=== PATIENT | female | born 1940 | race Caucasian/White ===

== ENCOUNTER → 2024-06-20 | Outpatient (CLI) | payer MEDICARE, MEDICAID, SELFPAY ==
--- NOTE | 2024-06-20 10:00 | XR_ITS ---
Examination: Breast ultrasound complete, bilateral Date and time of exam: June 20, 2024 1010 hours INDICATIONS: Patient states palpable lump in the breast note is beginning one month ago Technique: Real-time grayscale ultrasonographic imaging bilateral breasts, including all 4 quadrants as well as nipple retroareolar and axillary regions. Findings: Sonographic images right breast No cystic or solid mass Sonographic images left breast 10:00 suspicious mass 2.3 x 1.4 x 2.4 cm with indistinct margins and vascularity IMPRESSION: BI-RADS Category 4: Suspicious for malignancy Suspicious mass 10:00 position left breast, biopsy is needed to exclude breast carcinoma This mass is amenable to ultrasound-guided breast biopsy for diagnosis Recommend follow-up diagnostic mammography
--- NOTE | 2024-06-20 11:15 | XR_ITS ---
Examination: Screening digital mammography, bilateral Computer aided detection 3-D breast Tomosynthesis, bilateral Date and time of exam: June 20, 2024 1036 hours INDICATIONS: Patient states lump right breast note is 6 months ago Indication: Screening Technique: Nonmagnified MLO, CC views of the breasts to been obtained, reconstructed from 3-D Tomosynthesis images. R2 computer aided detection program utilized for evaluation of suspicious masses and/or abnormal calcifications. 3-D Tomosynthesis images obtained. Findings: Scattered areas of fibroglandular density 22 mm mass inner slightly upper left breast indistinct margins Impression: BI-RADS Category 4: Suspicious for malignancy Suspicious mass inner slightly upper left breast indistinct margins corresponding to 10:00 suspicious mass on left breast sonogram today Biopsy of this mass is needed to exclude breast carcinoma This mass is amenable to ultrasound-guided breast biopsy for diagnosis
== END | disposition home or self-care (01) ==
PROVIDERS: PCP Hospitalist; Referring Provider Hospitalist; Visit Provider Hospitalist
DX: Z12.31 Encounter for screening mammogram for malignant neoplasm of breast (principal); R92.343 Mammographic extreme density, bilateral breasts; N63.22 Unspecified lump in the left breast, upper inner quadrant
CPT/HCPCS: 76641; 77063; 77067

== ENCOUNTER 2024-07-15 13:24 | Emergency (ER) | payer MEDICARE, MEDICAID, SELFPAY ==
[2024-07-15 13:47] VITALS: BP 155/94; PULSE 107; RESP 18; TEMP 36.9; O2SAT 95
--- NOTE | 2024-07-15 14:00 | XR_ITS ---
Examination: Abdomen AP single view Technique: AP portable supine abdomen, single view Exam date and time: July 15, 2024 1404 hrs. Indications: Unknown position gastrostomy tube Findings: Gastrostomy tube tip upper left abdomen in distribution of the stomach on the precontrast images Contrast opacified tube shows the tube tip in the stomach with no abnormal extravasation of contrast Moderate colonic ileus No free air Impression: Gastrostomy tube satisfactory position in the stomach
--- NOTE | 2024-07-15 14:01 | EDNOTE_ITS ---
<Statement entered by Genoveva Sanchez MD - 07/15/24 23:19> As co-signing physician, I was present and available for consult prn. I concur with the plan and care as documented by the midlevel provider. ED General RME/HPI General Chief complaint: Abdominal Pain Stated complaint: PEG TUBE PULLED OUT Time Seen by Provider: 07/15/24 13:31 Arrival date/time: 07/15/24 13:24 CC: G-tube pulled out HPI patient presents the ER via EMS from assisted care facility patient is awake alert oriented states that she had the G-tube put in several months ago. Patient denies localized pain. Not sure how it came out but was assured me that it came out this morning. Patient no specific complaints. Related Data Home Medications ?Medication ?Instructions ?Recorded ?Confirmed clopidogrel 75 mg tablet (Plavix) 75 mg PO QDAY 07/01/23 05/02/24 metformin 500 mg tablet 500 mg PO BID 07/01/23 05/02/24 lisinopril 20 mg tablet 20 mg PO QDAY 04/28/24 05/02/24 hydrochlorothiazide 12.5 mg capsule 12.5 mg PO QDAY 05/02/24 05/02/24 Previous Rx's ?Medication ?Instructions ?Recorded fluconazole 200 mg tablet 200 mg PO QDAY #14 tabs 05/07/24 metoclopramide HCl 5 mg/5 mL oral 5 mg (5 mL) PO TID #473 mL 05/07/24 solution metoprolol tartrate 25 mg tablet 12.5 mg (1/2 x 25 mg) PO BID #30 05/07/24 tabs Allergies Allergy/AdvReac Type Severity Reaction Status Date / Time latex Allergy Severe POWDER IN Verified 07/15/24 15:37 GLOVES Review of Systems Review of Systems Narrative Review of Systems: GEN: No fever, no chills, no weight loss EYES: No discharge, no visual changes, no pain HEENT: No ear pain, no congestion, no sore throat PULM: No shortness of breath, no cough, no congestion CV: No chest pain, no dyspnea on exertion, no palpitations GI: No nausea, no vomiting, no diarrhea, no pain, no constipation : No frequency, no urgency, no dysuria MUSC/SKEL: No joint pain, no back pain SKIN: No rash PSYCH: No hallucinations, no depression HEME/LYMPH: No easy bleeding or bruising tendencies NEURO: No weakness, no headache Past Medical History Past Medical History NEUROLOGIC: Negative Neurological Disorders or Seizures (all information provided by son Byron) CARDIAC: Positive Cardiac Disorders, Coronary Artery Disease and Hypertension; Negative Myocardial Infarction, Cardiac Arrhythmia or Congestive Heart Failure RESPIRATORY: Negative Chronic Obstructive Pulmonary Disease (COPD) or Asthma GASTROINTESTINAL: Positive Obesity; Negative Gastrointestinal Disorders, Cirrhosis, Pancreatitis, Celiac Disease, Gall Bladder Disease, Gastrointestinal Bleed, Esophageal Varices, Cueto's Esophagus, Colitis, Ulcerative Colitis, Diverticulitis, Diverticulosis, Ulcer, Irritable Bowel, Crohn's Disease, Obstructive Bowel, Hiatal Hernia, Hemorrhoids or Gastroesophageal Reflux Disease GENITOURINARY: Negative Genitourinary Disorders or Renal Disease REPRODUCTIVE: Negative Pelvic Inflammatory Disease MUSCULOSKELETAL: Negative Musculoskeletal Disorders ENT: Positive Cataracts; Negative Glaucoma, Blind, Retinal Detachment, Macular Degeneration, Ear Infection, Deafness or Eye Prosthesis ENDOCRINE: Positive Endocrine Disorders and Diabetes Mellitus Type 2; Negative Diabetes Mellitus Type 1, Hypoglycemia, Andrew's Syndrome, Yimi's Disease, Hyperthyroidism, Hypothyroidism, Parathyroid Disease, Pituitary Disease, Systemic Lupus Erythematosus, Syndrome of Inappropriate Antidiuretic H ormone (SIADH), Adrenal Disease or Graves' Disease HEMATOLOGIC: Positive Blood Disorders; Negative Sickle Cell Disease PSYCHO/SOCIAL: Positive Bipolar Disorder; Negative Psychiatric Problems OTHER HISTORY: Positive Hospitalization, Shingles, Falls and Anesthesia Reactions (pt had confusion after anesthesia about 7yrs go); Negative Autoimmune Disease, Blood Transfusions or Blood Transfusion Reaction Family History FAMILY HISTORY: Negative Family Psychiatric Problems, Family Respiratory Disorders, Family Cardiac Disorders, Family Gastrointestinal Problems, Family Cancer, Family Surgery or Family Anesthesia Reaction Surgical History SURGICAL: Negative Cardiac Surgery, Open Heart Surgery, Coronary Artery Bypass Graft, Valve Replacement, Vascular Surgery, Coronary Stent or Cardiac Catheterization Social History SMOKING STATUS: Unknown if ever smoked SUBSTANCE USE: does not use ED Exam Narrative Physical exam: [General: Obese not in any acute distress Head normocephalic HEENT: Within acceptable limits Neck is supple nontender Chest equal chest rise nontender to palpation Respiratory: Clear to auscultation no wheezes crackles or rubs CV: Rate rhythm is regular no murmurs rubs or clicks Abdomen is distended secondary to body habitus upper central G-tube stoma clean dry intact no surrounding erythema or edema. Back: No CVA tenderness no spinous process tenderness from cervical spine thoracic and lumbar spine Skin: Intact no petechiae rash induration ulceration or crepitus Extremities: Moving all extremity against resistance cap refill less than 2 seconds neurosensory intact Neuro: Awake alert oriented x2, person and place, Glascow coma 15 no focal deficits] Course Quality Measures VTE prophylaxis Orders Category Date Time Status Change Gastrostomy Tube NOW Care 07/15/24 13:32 Completed XR abdomen 1V Stat Exams 07/15/24 14:00 Completed Vital Signs Vital signs: Vital Signs Temperature 98.4 F 07/15/24 13:47 Pulse Rate 107 H 07/15/24 13:47 Respiratory Rate 18 07/15/24 13:47 Blood Pressure 155/94 H 07/15/24 13:47 Pulse Oximetry (%) 95 07/15/24 13:47 Oxygen Delivery Method Room Air 07/15/24 13:47 Procedures -ED Procedure Comment Standard PEG tube attempt x 1, without success. #12 Kirkland catheter placed without complication. Patient tolerated the procedure well. MDM Patient data External records reviewed:: EMS form Clinical information provided by:: patient and EMS Social determinants that could affect healthcare access:: none Patient has the following chronic illnesses:: See past medical history How is presenting disease/condition affected by chronic disease/condition?: uneffected by Evaluation data The following diagnostics were reviewed and interpreted by me:: lab results and radiology exam(s) Lab and/or radiology exams considered but not ordered:: See MDM Interpretation Summary: N G-tube replacement Medications Medications considered but not ordered:: None Medication administrations:: None Consultations Consultation(s) initiated? (list below): No Diagnosis Differential Diagnosis ED Complaint MDM: G-tube failure G-tube replacement Most likely diagnosis given after review of the tests above:: G-tube replacement Admission Indicated Admission indicated?: not indicated Explain why admission is indicated or not indicated:: Stable for outpatient follow-up Admission Request Was there a request for admission?: No Disposition Plan Disposition Plan: Discharge Discharge Attestation Discharge Attestation: The patient and all family members were given an opportunity to ask questions and understood the discharge instructions. Discharge instructions specifically effects, indications for sooner follow up or return to the emergency department, and the expected course of current diagnosis. Patient condition: Stable Medical Decision Making Differential Diagnosis Differential Diagnosis: G-tube failure G-tube replacement Discharge Plan Plan Patient Disposition: HOME (Self Care) Prescriptions/Referrals Prescriptions/Med Rec: No Action metformin 500 mg Tablet 500 mg PO BID clopidogrel [Plavix] 75 mg Tablet 75 mg PO QDAY lisinopril 20 mg Tablet 20 mg PO QDAY hydrochlorothiazide 12.5 mg capsule 12.5 mg PO QDAY metoclopramide HCl 5 mg/5 mL solution 5 mg PO TID Qty: 473 0RF metoprolol tartrate 25 mg tablet 12.5 mg PO BID Qty: 30 0RF fluconazole 200 mg tablet 200 mg PO QDAY Qty: 14 0RF Referrals: Won Coto MD [Physician] - In 1 week No Primary/Family,Physician [Primary Care Provider] - In 1 week Problem List Clinical Impression: Complaint associated with gastric tube Patient/Caregiver Discharge Instructions Education Materials: Understanding PEG Tube Feeding Print Language: Bolivian Stand Alone Forms: Katie Award Info., Patient Portal Info Letter PA/BUTCHER MEAT Supervising Physician PA/BUTCHER MEAT Supervising Physician: Mak Chew ENP
--- NOTE | 2024-07-15 15:08 | PC.CC ---
Addendum entered by Mulugeta Peña II 07/15/24 15:50: 1539-Call from dispatch, transport ETA 1800. Original Note: [employer] [facility] engaged for transport for pt back to [facility]. 1413-Call to [facility] with request for gurney transport. Reference # [id number]. Pending Transport ETA. PCS and face sheet uploaded to [employer].
== END 2024-07-15 16:45 | disposition home or self-care (01) ==
PROVIDERS: Emergency Provider Emergency Medicine
DX: Z43.1 Encounter for attention to gastrostomy (principal)
CPT/HCPCS: 43762; 74018; 99283; Q9963

== ENCOUNTER 2024-08-03 14:54 | Emergency (ER) | payer MEDICARE, MEDICAID, SELFPAY ==
[2024-08-03 14:56] VITALS: BP 164/93; PULSE 97; RESP 17; TEMP 36.8; O2SAT 94; BMI 24.2
--- NOTE | 2024-08-03 15:07 | EDNOTE_ITS ---
ED General RME/HPI General Chief complaint: General Adult/Misc Complain Stated complaint: G TUBE REPLACMENT Time Seen by Provider: 08/03/24 15:02 Arrival date/time: 08/03/24 14:54 RME / HPI RME / HPI narrative: DR. BUSCH MAIN ED EVALUATION: 84 year old female with past medical history significant for coronary artery disease status post PTCA, diabetes mellitus type 2, essential hypertension, metabolic encephalopathy presents to the Emergency Department [facility] from [facility] for G-tube replacement. Patient states that she did not realize that she pulled it out. No symptoms reported at this time. Related Data Home Medications ?Medication ?Instructions ?Recorded ?Confirmed clopidogrel 75 mg tablet (Plavix) 75 mg PO QDAY 07/01/23 05/02/24 metformin 500 mg tablet 500 mg PO BID 07/01/23 05/02/24 lisinopril 20 mg tablet 20 mg PO QDAY 04/28/24 05/02/24 hydrochlorothiazide 12.5 mg capsule 12.5 mg PO QDAY 05/02/24 05/02/24 Previous Rx's ?Medication ?Instructions ?Recorded fluconazole 200 mg tablet 200 mg PO QDAY #14 tabs 05/07/24 metoclopramide HCl 5 mg/5 mL oral 5 mg (5 mL) PO TID #473 mL 05/07/24 solution metoprolol tartrate 25 mg tablet 12.5 mg (1/2 x 25 mg) PO BID #30 05/07/24 tabs Allergies Allergy/AdvReac Type Severity Reaction Status Date / Time latex Allergy Severe POWDER IN Verified 07/15/24 15:37 GLOVES Review of Systems Review of Systems Systems Reviewed: All systems reviewed, normal except as documented Narrative Review of Systems: GEN: No fever, no chills, no weight loss EYES: No discharge, no visual changes, no pain HEENT: No ear pain, no congestion, no sore throat PULM: No shortness of breath, no cough, no congestion CV: No chest pain, no dyspnea on exertion, no palpitations GI: No nausea, no vomiting, no diarrhea, no pain, no constipation : No frequency, no urgency and no dysuria MUSC/SKEL: No joint pain, no back pain SKIN: No rash PSYCH: No hallucinations, no depression HEME/LYMPH: No easy bleeding or bruising tendencies NEURO: No weakness, no headache Past Medical History Past Medical History CARDIAC: Positive Cardiac Disorders, Coronary Artery Disease and Hypertension GASTROINTESTINAL: Positive Obesity ENT: Positive Cataracts ENDOCRINE: Positive Endocrine Disorders and Diabetes Mellitus Type 2 HEMATOLOGIC: Positive Blood Disorders PSYCHO/SOCIAL: Positive Bipolar Disorder OTHER HISTORY: Positive Hospitalization, Shingles, Falls and Anesthesia Reactions Social History SMOKING STATUS: Never smoker SUBSTANCE USE: does not use ALCOHOL: Never ED Exam Narrative Physical exam: GENERAL APPEARANCE: alert and oriented x 4, well-developed, well-nourished, no acute distress VITALS: All vitals were reviewed and the pulse ox is 94% on room air, which is normal according to my interpretation. HEENT: Normocephalic, atraumatic; pupils equal, round, reactive to light; EOMI; mucous membranes pink, moist; oropharynx clear NECK: Supple LUNGS: CTABL; no wheezes, no rales, no rhonchi HEART: Regular rate, regular rhythm; normal S1, S2; no murmurs ABDOMEN: non distended; normal BS; soft, no tenderness, no guarding, no rebound; no masses, no organomegaly, no hernia BACK: no CVA tenderness EXTREMITIES: atraumatic; no edema NEUROLOGIC: awake; alert and oriented x4; cranial nerves II-XII grossly intact; no focal sensory or motor deficits PSYCHIATRIC: appropriate mood and affect SKIN: warm, dry, normal color; no rashes Course Course Course Narrative: Attempted to replace g-tube with 16Fr gtube however tube size was unable to pass. Replaced with 14Fr aaron catheter. Patient tolerated well. No complications. Quality Measures none Reevaluation(s) Reevaluation #1: Patient remains clinically stable throughout the emergency department visit. Re- assessment at the time of disposition demonstrates that the patient is in no acute distress. We reviewed all the results, analysis, and treatment plans. Patient is amenable to discharge. Strict return precautions were outlined. Patient was discharged in stable condition. Time: 15:40 Vital Signs Vital signs: Vital Signs Temperature 98.2 F 08/03/24 14:56 Pulse Rate 97 08/03/24 14:56 Respiratory Rate 17 08/03/24 14:56 Blood Pressure 164/93 H 08/03/24 14:56 Pulse Oximetry (%) 94 L 08/03/24 14:56 Oxygen Delivery Method Room Air 08/03/24 14:56 Procedures -ED Procedure Comment 14 Aaron placed for a G-tube. Patient tolerated the procedure well. No complications. MDM Patient data External records reviewed:: [facility] previous records (Reviewed last ED visit dated 07/15/24, discharged with the following: Complaint associated with gastric tube.) Clinical information provided by:: patient Social determinants that could affect healthcare access:: housing ([facility]) Patient has the following chronic illnesses:: Coronary artery disease status post PTCA, diabetes mellitus type 2, essential hypertension, metabolic encephalopathy. How is presenting disease/condition affected by chronic disease/condition?: uneffected by Evaluation data The following diagnostics were reviewed and interpreted by me:: other (specify) (none) Lab and/or radiology exams considered but not ordered:: none Interpretation Summary: n/a Medications Medications considered but not ordered:: none Medication administrations:: see above if any Consultations Consultation(s) initiated? (list below): No Diagnosis Differential Diagnosis ED Complaint MDM: G-tube complications, dislodged gastrostomy tube Most likely diagnosis given after review of the tests above:: Dislodged gastrostomy tube Admission Indicated Admission indicated?: not indicated Explain why admission is indicated or not indicated:: Patient has no emergent abnormalities on his studies and can be managed on an outpatient basis. Admission Request Was there a request for admission?: No Disposition Plan Disposition Plan: Discharge Discharge Attestation Discharge Attestation: The patient and all family members were given an opportunity to ask questions and understood the discharge instructions. Discharge instructions specifically effects, indications for sooner follow up or return to the emergency department, and the expected course of current diagnosis. Patient condition: Stable Medical Decision Making [facility] Narrative [facility] Narrative: IDinorah am scribing for and in the presence of Dr. Busch. Differential Diagnosis Differential Diagnosis: G-tube complications, dislodged gastrostomy tube Discharge Plan Plan Patient Disposition: Xfer Skilled Nsg Fac (SNF) Prescriptions/Referrals Prescriptions/Med Rec: No Action metformin 500 mg Tablet 500 mg PO BID clopidogrel [Plavix] 75 mg Tablet 75 mg PO QDAY lisinopril 20 mg Tablet 20 mg PO QDAY hydrochlorothiazide 12.5 mg capsule 12.5 mg PO QDAY metoclopramide HCl 5 mg/5 mL solution 5 mg PO TID Qty: 473 0RF metoprolol tartrate 25 mg tablet 12.5 mg PO BID Qty: 30 0RF fluconazole 200 mg tablet 200 mg PO QDAY Qty: 14 0RF Problem List Clinical Impression: Dislodged gastrostomy tube Patient/Caregiver Discharge Instructions Education Materials: ED Feeding Tube Insertion Print Language: Hungarian Stand Alone Forms: Katie Award Info., Patient Portal Info Letter
[2024-08-03 15:09] VITALS: PULSE 74; RESP 20; O2SAT 98; BMI 24.2
[2024-08-03 15:17] VITALS: PULSE 74; RESP 20; O2SAT 98
--- NOTE | 2024-08-03 16:07 | PC.CC ---
ASWMelissa was consulted regarding transportation for the patient back to [facility]. [facility].
[2024-08-03 17:55] VITALS: BP 170/97; PULSE 98; RESP 17; TEMP 36.9; O2SAT 96
== END 2024-08-03 20:01 | disposition skilled nursing facility (03) ==
PROVIDERS: Emergency Provider Emergency Medicine; PCP Hospitalist
DX: Z46.59 Encounter for fitting and adjustment of other gastrointestinal appliance and device (principal); I25.10 Atherosclerotic heart disease of native coronary artery without angina pectoris; I10 Essential (primary) hypertension; E11.9 Type 2 diabetes mellitus without complications
CPT/HCPCS: 43762; 99283

== ENCOUNTER 2024-08-03 22:14 | Emergency (ER) | payer MEDICARE, MEDICAID, SELFPAY ==
[2024-08-03 22:19] VITALS: BP 161/83; PULSE 94; RESP 18; TEMP 36.7; O2SAT 95; BMI 25.0
[2024-08-03 22:45] VITALS: PULSE 76; RESP 20; O2SAT 98
--- NOTE | 2024-08-03 22:50 | EDNOTE_ITS ---
ED General RME/HPI General Chief complaint: General Adult/Misc Complain Stated complaint: G TUBE REPLACEMENT Time Seen by Provider: 08/03/24 22:19 Arrival date/time: 08/03/24 22:14 Limitations: no limitations RME / HPI RME / HPI narrative: Dr. D[facility]'s Main ED Evaluation: 84yo female with a history of dementia presents to the ED for a chief complaint of a g-tube replacement. [facility] staff states they found the patient with a bandaid over her G-tube site without her G-tube in place, so they sent her over to get it replaced. Patient denies taking it out, but [facility] staff endorse she frequently does this. Patient denies any bleeding, abdominal pain or any other associated symptoms. Related Data Home Medications ?Medication ?Instructions ?Recorded ?Confirmed clopidogrel 75 mg tablet (Plavix) 75 mg PO QDAY 07/01/23 05/02/24 metformin 500 mg tablet 500 mg PO BID 07/01/23 05/02/24 lisinopril 20 mg tablet 20 mg PO QDAY 04/28/24 05/02/24 hydrochlorothiazide 12.5 mg capsule 12.5 mg PO QDAY 05/02/24 05/02/24 Previous Rx's ?Medication ?Instructions ?Recorded fluconazole 200 mg tablet 200 mg PO QDAY #14 tabs 05/07/24 metoclopramide HCl 5 mg/5 mL oral 5 mg (5 mL) PO TID #473 mL 05/07/24 solution metoprolol tartrate 25 mg tablet 12.5 mg (1/2 x 25 mg) PO BID #30 05/07/24 tabs Allergies Allergy/AdvReac Type Severity Reaction Status Date / Time latex Allergy Severe POWDER IN Verified 07/15/24 15:37 GLOVES Review of Systems Review of Systems Systems Reviewed: All systems reviewed, normal except as documented Past Medical History Past Medical History NEUROLOGIC: Negative Neurological Disorders or Seizures CARDIAC: Positive Cardiac Disorders, Coronary Artery Disease and Hypertension; Negative Myocardial Infarction, Cardiac Arrhythmia or Congestive Heart Failure RESPIRATORY: Negative Chronic Obstructive Pulmonary Disease (COPD) or Asthma GASTROINTESTINAL: Positive Obesity; Negative Gastrointestinal Disorders, Cirrhosis, Pancreatitis, Celiac Disease, Gall Bladder Disease, Gastrointestinal Bleed, Esophageal Varices, Cueto's Esophagus, Colitis, Ulcerative Colitis, Diverticulitis, Diverticulosis, Ulcer, Irritable Bowel, Crohn's Disease, Obstructive Bowel, Hiatal Hernia, Hemorrhoids or Gastroesophageal Reflux Disease GENITOURINARY: Negative Genitourinary Disorders or Renal Disease REPRODUCTIVE: Negative Pelvic Inflammatory Disease MUSCULOSKELETAL: Negative Musculoskeletal Disorders ENT: Positive Cataracts; Negative Glaucoma, Blind, Retinal Detachment, Macular Degeneration, Ear In fection, Deafness or Eye Prosthesis ENDOCRINE: Positive Endocrine Disorders and Diabetes Mellitus Type 2; Negative Diabetes Mellitus Type 1, Hypoglycemia, [place]'s Syndrome, Yimi's Disease, Hyperthyroidism, Hypothyroidism, Parathyroid Disease, Pituitary Disease, Systemic Lupus Erythematosus, Syndrome of Inappropriate Antidiuretic Hormone (SIADH), Adrenal Disease or Graves' Disease HEMATOLOGIC: Positive Blood Disorders; Negative Sickle Cell Disease PSYCHO/SOCIAL: Positive Bipolar Disorder; Negative Psychiatric Problems OTHER HISTORY: Positive Hospitalization, Shingles, Falls and Anesthesia Reactions; Negative Autoimmune Disease, Blood Transfusions or Blood Transfusion Reaction Family History FAMILY HISTORY: Negative Family Psychiatric Problems, Family Respiratory Disorders, Family Cardiac Disorders, Family Gastrointestinal Problems, Family Cancer, Family Surgery or Family Anesthesia Reaction Surgical History SURGICAL: Negative Cardiac Surgery, Open Heart Surgery, Coronary Artery Bypass Graft, Valve Replacement, Vascular Surgery, Coronary Stent or Cardiac Catheterization Social History SMOKING STATUS: Never smoker SUBSTANCE USE: does not use ED Exam General Limitations: Present no limitations General appearance: Present alert and in no apparent distress Head Head exam: Present atraumatic Eye Eye exam: Present normal appearance, PERRL and EOMI ENT ENT exam: Present normal exam, normal oropharynx and mucous membranes moist Neck Neck exam: Present normal inspection, full ROM and trachea midline Chest Chest inspection: Present normal inspection and symmetric chest wall rise Respiratory Respiratory exam: Present normal lung sounds bilaterally Cardiovascular Cardiovascular exam: Present regular rate, normal rhythm and normal heart sounds Abdominal Exam Abdominal exam: Present soft, normal bowel sounds and other (no surrounding erythema or discharge at the g-tube site) Extremities Exam Extremities exam: Present normal inspection and full ROM Back Exam Back exam: Present normal inspection and full ROM Neurological Exam Neurological exam: Present alert, oriented X3 and CN II-XII intact Psychiatric Psychiatric exam: Present normal affect and normal mood Skin Skin exam: Present warm, dry, intact and normal color Course Course Course Narrative: Patient placed in an abdominal binder to prevent her from pulling out the newly replaced g-tube. Quality Measures none Orders Category Date Time Status KUB [XR abdomen 1V] Stat Exams 08/04/24 00:36 Completed Vital Signs Vital signs: Vital Signs Temperature 98.1 F 08/03/24 22:19 Pulse Rate 94 08/03/24 22:19 Respiratory Rate 18 08/03/24 22:19 Blood Pressure 161/83 H 08/03/24 22:19 Pulse Oximetry (%) 95 08/03/24 22:19 Oxygen Delivery Method Room Air 08/03/24 22:19 Procedures -ED Feeding Tube Replacement Type of Tube: gastrostomy Insertion Site Prior to Procedure: clean Tube Used for Reinsertion: [place] Yi Tube Size (F): 14 Balloon size (mL): 5 Verification of Placement: auscultation, KUB and gastrografin injection Tube Secured by: tape/dressing Patient Tolerated Procedure: no complications MDM Patient data External records reviewed:: [facility] previous records (Per chart review, patient was seen here earlier today for the same complaint.) Clinical information provided by:: patient Social determinants that could affect healthcare access:: housing (Pt resides in a SNF.) Patient has the following chronic illnesses:: CAD, HTN, DM How is presenting disease/condition affected by chronic disease/condition?: uneffected by Evaluation data The following diagnostics were reviewed and interpreted by me:: radiology exam(s) Lab and/or radiology exams considered but not ordered:: none Interpretation Summary: Abdominal x-ray shows g-tube in good placement, no free air, gastrografin seen in the stomach, according to my interpretation. Medications Medications considered but not ordered:: none Medication administrations:: see above, if any Consultations Consultation(s) initiated? (list below): No Diagnosis Differential Diagnosis ED Complaint MDM: g-tube misplacement, g-tube dislodgement, encounter for g-tube replacement Most likely diagnosis given after review of the tests above:: Gtube dysfunction Admission Indicated Admission indicated?: not indicated Explain why admission is indicated or not indicated:: G tube in place Admission Request Was there a request for admission?: No Disposition Plan Disposition Plan: Discharge Discharge Attestation Discharge Attestation: The patient and all family members were given an opportunity to ask questions and understood the discharge instructions. Discharge instructions specifically effects, indications for sooner follow up or return to the emergency department, and the expected course of current diagnosis. Patient condition: Stable Medical Decision Making Differential Diagnosis Differential Diagnosis: g-tube misplacement, g-tube dislodgement, encounter for g-tube replacement Discharge Plan Plan Patient Disposition: Xfer Intermediate Acute Prescriptions/Referrals Prescriptions/Med Rec: No Action metformin 500 mg Tablet 500 mg PO BID clopidogrel [Plavix] 75 mg Tablet 75 mg PO QDAY lisinopril 20 mg Tablet 20 mg PO QDAY hydrochlorothiazide 12.5 mg capsule 12.5 mg PO QDAY metoclopramide HCl 5 mg/5 mL solution 5 mg PO TID Qty: 473 0RF metoprolol tartrate 25 mg tablet 12.5 mg PO BID Qty: 30 0RF fluconazole 200 mg tablet 200 mg PO QDAY Qty: 14 0RF Referrals: Laina Russell MD [Primary Care Provider] - In 1 week Problem List Clinical Impression: Gastrostomy tube dysfunction Patient/Caregiver Discharge Instructions Print Language: Chinese Stand Alone Forms: Katie Award Info., Patient Portal Info Letter
[2024-08-03 22:54] VITALS: BP 155/97; PULSE 88; RESP 14; O2SAT 94
--- NOTE | 2024-08-04 00:36 | XR_ITS ---
Examination: Abdomen AP single view Technique: AP portable supine abdomen, single view Exam date and time: August 04, 2024 0046 hrs. Indications: Unknown position gastrostomy tube Findings: Contrast outlines the gastrostomy tube stomach and duodenum No abnormal extravasation Impression: Gastrostomy tube tip in the stomach satisfactory position
== END 2024-08-04 02:58 ==
PROVIDERS: Emergency Provider Emergency Medicine; PCP Hospitalist
DX: Z46.59 Encounter for fitting and adjustment of other gastrointestinal appliance and device (principal); F03.93 Unspecified dementia, unspecified severity, with mood disturbance; E11.9 Type 2 diabetes mellitus without complications; I25.10 Atherosclerotic heart disease of native coronary artery without angina pectoris; I10 Essential (primary) hypertension
CPT/HCPCS: 43762; 74018; 99283

== ENCOUNTER 2024-08-21 23:25 | Emergency (ER) | payer MEDICARE, MEDICAID, SELFPAY ==
[2024-08-21 23:29] VITALS: BP 181/96; PULSE 87; RESP 16; TEMP 36.9; O2SAT 96
[2024-08-22 00:17] VITALS: BMI 26.6
--- NOTE | 2024-08-22 00:55 | EDNOTE_ITS ---
ED General RME/HPI General Chief complaint: General Adult/Misc Complain Stated complaint: G TUBE REPLACEMENT Time Seen by Provider: 08/22/24 00:45 Arrival date/time: 08/21/24 23:25 Limitations: no limitations RME / HPI RME / HPI narrative: Dr. Daley's Main ED Evaluation: 84yo female with a history of dementia JIM from [facility] presents to the ED for a G-tube replacement. Per EMS, [facility] staff reported this is the 4th time this month the patient has pulled out her G-tube. EMS notes the patient is combative at baseline. Full ROS is unobtainable due to the patient's history of dementia. Related Data Home Medications ?Medication ?Instructions ?Recorded ?Confirmed clopidogrel 75 mg tablet (Plavix) 75 mg PO QDAY 07/01/23 05/02/24 metformin 500 mg tablet 500 mg PO BID 07/01/23 05/02/24 lisinopril 20 mg tablet 20 mg PO QDAY 04/28/24 05/02/24 hydrochlorothiazide 12.5 mg capsule 12.5 mg PO QDAY 05/02/24 05/02/24 Previous Rx's ?Medication ?Instructions ?Recorded fluconazole 200 mg tablet 200 mg PO QDAY #14 tabs 05/07/24 metoclopramide HCl 5 mg/5 mL oral 5 mg (5 mL) PO TID #473 mL 05/07/24 solution metoprolol tartrate 25 mg tablet 12.5 mg (1/2 x 25 mg) PO BID #30 05/07/24 tabs Allergies Allergy/AdvReac Type Severity Reaction Status Date / Time latex Allergy Severe POWDER IN Verified 07/15/24 15:37 GLOVES Review of Systems Review of Systems ROS Unobtainable: other (unobtainable due to the patient's history of dementia) ED Exam General Limitations: Present no limitations General appearance: Present alert and in no apparent distress Head Head exam: Present atraumatic Eye Eye exam: Present normal appearance, PERRL and EOMI ENT ENT exam: Present normal exam, normal oropharynx and mucous membranes moist Neck Neck exam: Present normal inspection, full ROM and trachea midline Chest Chest inspection: Present normal inspection and symmetric chest wall rise Respiratory Respiratory exam: Present normal lung sounds bilaterally Cardiovascular Cardiovascular exam: Present regular rate, normal rhythm and normal heart sounds Abdominal Exam Abdominal exam: Present soft, normal bowel sounds and other (no erythema or discharge from the G-tube site); Absent tenderness Extremities Exam Extremities exam: Present normal inspection and full ROM Back Exam Back exam: Present normal inspection and full ROM Neurological Exam Neurological exam: Present alert, oriented X3 and CN II-XII intact Psychiatric Psychiatric exam: Present normal affect and normal mood Skin Skin exam: Present warm, dry, intact and normal color Course Quality Measures none Orders Category Date Time Status KUB [XR abdomen 1V] Stat Exams 08/22/24 01:12 Taken Vital Signs Vital signs: Vital Signs Temperature 98.4 F 08/21/24 23:29 Pulse Rate 87 08/21/24 23:29 Respiratory Rate 16 08/21/24 23:29 Blood Pressure 181/96 H 08/21/24 23:29 Pulse Oximetry (%) 96 08/21/24 23:29 Oxygen Delivery Method Room Air 08/21/24 23:29 Pulse ox is 96% on room air, which is normal according to my interpretation. Procedures -ED Feeding Tube Replacement Type of Tube: gastrostomy Insertion Site Prior to Procedure: clean Tube Used for Reinsertion: other (g-tube) Czech Tube Size (F): 14 Balloon size (mL): 10 Verification of Placement: auscultation, KUB and gastrografin injection Tube Secured by: tape/dressing Patient Tolerated Procedure: well and no complications MDM Patient data External records reviewed:: [facility] previous records (Per chart review, patient was seen here on 08/03/24 for g-tube dislodgement.) Clinical information provided by:: EMS Social determinants that could affect healthcare access:: housing (Pt resides in a SNF.) Patient has the following chronic illnesses:: CVA, HTN, DM, dementia How is presenting disease/condition affected by chronic disease/condition?: caused by Evaluation data The following diagnostics were reviewed and interpreted by me:: radiology exam(s) Lab and/or radiology exams considered but not ordered:: none Interpretation Summary: KUB x-ray shows g-tube in good placement, no free air, gastrografin seen in the stomach, according to my interpretation. Medications Medications considered but not ordered:: none Medication administrations:: none Consultations Consultation(s) initiated? (list below): No Diagnosis Differential Diagnosis ED Complaint MDM: g-tube dislodgement, g-tube misplacement, encounter for g-tube replacement Most likely diagnosis given after review of the tests above:: see below Admission Indicated Admission indicated?: not indicated Explain why admission is indicated or not indicated:: Admission criteria not met. G-tube is in good placement. Admission Request Was there a request for admission?: No Disposition Plan Disposition Plan: Discharge Discharge Attestation Discharge Attestation: The patient and all family members were given an opportunity to ask questions and understood the discharge instructions. Discharge instructions specifically effects, indications for sooner follow up or return to the emergency department, and the expected course of current diagnosis. Patient condition: Stable Medical Decision Making Differential Diagnosis Differential Diagnosis: g-tube dislodgement, g-tube misplacement, encounter for g-tube replacement Discharge Plan Plan Patient Disposition: HOME (Self Care) Patient condition on transfer: Stable Prescriptions/Referrals Prescriptions/Med Rec: No Action metformin 500 mg Tablet 500 mg PO BID clopidogrel [Plavix] 75 mg Tablet 75 mg PO QDAY lisinopril 20 mg Tablet 20 mg PO QDAY hydrochlorothiazide 12.5 mg capsule 12.5 mg PO QDAY metoclopramide HCl 5 mg/5 mL solution 5 mg PO TID Qty: 473 0RF metoprolol tartrate 25 mg tablet 12.5 mg PO BID Qty: 30 0RF fluconazole 200 mg tablet 200 mg PO QDAY Qty: 14 0RF Problem List Clinical Impression: Encounter for gastrojejunal (GJ) tube placement Patient/Caregiver Discharge Instructions Additional Instructions: Return to the emergency department for worsening symptoms or any other concerns. Today your G-tube was replaced with a 14 Czech G-tube. Repeat x-ray shows that it is in good placement and contrast was seen. Please use the G-tube as directed per your doctor. Print Language: Spanish Stand Alone Forms: Katie Award Info., Patient Portal Info Letter
--- NOTE | 2024-08-22 01:12 | XR_ITS ---
Examination: Abdomen AP single view Technique: AP portable supine abdomen, single view Exam date and time: August 22, 2024 0141 hours INDICATIONS: 4-year-old gastrostomy tube unknown position FINDINGS: Contrast opacifies the gastrostomy tube in fundus of the stomach No abnormal extravasation of contrast IMPRESSION: Gastrostomy tube in stomach satisfactory position
--- NOTE | 2024-08-22 01:17 | PC.NURSE ---
Assisted Dr. Daley with G tube replacement. 14Fr aaron placed with 10ml saline in the balloon. Minimal bleeding at insertion site, pt tolerated placement well.
== END 2024-08-22 02:42 | disposition home or self-care (01) ==
LOC: SERX 08-22 02:11
PROVIDERS: Emergency Provider Emergency Medicine; PCP Hospitalist
DX: Z43.1 Encounter for attention to gastrostomy (principal)
CPT/HCPCS: 43762; 74018; 99283; Q9963

== ENCOUNTER 2024-09-17 17:07 | Emergency (ER) | payer MEDICARE, MEDICAID, SELFPAY ==
[2024-09-17 17:15] VITALS: BP 157/86; PULSE 90; RESP 16; TEMP 37.3; O2SAT 94; BMI 25.2
--- NOTE | 2024-09-17 18:00 | PC.NURSE ---
16 CZECH G-TUBE PLACED BY ROBERT TALLEY.
--- NOTE | 2024-09-17 18:08 | XR_ITS ---
Examination: Abdomen AP single view Technique: AP portable supine abdomen, single view Exam date and time: September 17, 2024 1822 hrs. Indications: Unknown position gastrostomy tube Findings: Opacification of the gastrostomy tube and contrast in stomach No abnormal leakage of contrast Impression: Gastrostomy tube in stomach satisfactory position
--- NOTE | 2024-09-17 18:09 | PD.EDADULT ---
ED General RME/HPI General Chief complaint: Abdominal Pain Stated complaint: G TUBE REPLACEMENT Time Seen by Provider: 09/17/24 17:11 Arrival date/time: 09/17/24 17:07 CC: No broken G-tube HPI ongoing for the past day. EMS reports stable vital signs and route. Patient is awake and alert. No specific complaints Related Data Home Medications ?Medication ?Instructions ?Recorded ?Confirmed clopidogrel 75 mg tablet (Plavix) 75 mg PO QDAY 07/01/23 05/02/24 metformin 500 mg tablet 500 mg PO BID 07/01/23 05/02/24 lisinopril 20 mg tablet 20 mg PO QDAY 04/28/24 05/02/24 hydrochlorothiazide 12.5 mg capsule 12.5 mg PO QDAY 05/02/24 05/02/24 Previous Rx's ?Medication ?Instructions ?Recorded fluconazole 200 mg tablet 200 mg PO QDAY #14 tabs 05/07/24 metoclopramide HCl 5 mg/5 mL oral 5 mg (5 mL) PO TID #473 mL 05/07/24 solution metoprolol tartrate 25 mg tablet 12.5 mg (1/2 x 25 mg) PO BID #30 05/07/24 tabs Allergies Allergy/AdvReac Type Severity Reaction Status Date / Time latex Allergy Severe POWDER IN Verified 07/15/24 15:37 GLOVES Review of Systems Review of Systems Narrative Review of Systems: GEN: No fever, no chills, no weight loss EYES: No discharge, no visual changes, no pain HEENT: No ear pain, no congestion, no sore throat PULM: No shortness of breath, no cough, no congestion CV: No chest pain, no dyspnea on exertion, no palpitations GI: No nausea, no vomiting, no diarrhea, no pain, no constipation : No frequency, no urgency, no dysuria MUSC/SKEL: No joint pain, no back pain SKIN: No rash PSYCH: No hallucinations, no depression HEME/LYMPH: No easy bleeding or bruising tendencies NEURO: No weakness, no headache Past Medical History Past Medical History NEUROLOGIC: Negative Neurological Disorders or Seizures CARDIAC: Positive Cardiac Disorders, Coronary Artery Disease and Hypertension; Negative Myocardial Infarction, Cardiac Arrhythmia or Congestive Heart Failure RESPIRATORY: Negative Chronic Obstructive Pulmonary Disease (COPD) or Asthma GASTROINTESTINAL: Positive Obesity; Negative Gastrointestinal Disorders, Cirrhosis, Pancreatitis, Celiac Disease, Gall Bladder Disease, Gastrointestinal Bleed, Esophageal Varices, Cueto's Esophagus, Colitis, Ulcerative Colitis, Diverticulitis, Diverticulosis, Ulcer, Irritable Bowel, Crohn's Disease, Obstructive Bowel, Hiatal Hernia, Hemorrhoids or Gastroesophageal Reflux Disease GENITOURINARY: Negative Genitourinary Disorders or Renal Disease REPRODUCTIVE: Negative Pelvic Inflammatory Disease MUSCULOSKELETAL: Negative Musculoskeletal Disorders ENT: Positive Cataracts; Negative Glaucoma, Blind, Retinal Detachment, Macular Degeneration, Ear Infection, Deafness or Eye Prosthesis ENDOCRINE: Positive Endocrine Disorders and Diabetes Mellitus Type 2; Negative Diabetes Mellitus Type 1, Hypoglycemia, Andrew's Syndrome, [place]'s Disease, Hyperthyroidism, Hypothyroidism, Parathyroid Disease, Pituitary Disease, Systemic Lupus Erythematosus, Syndrome of Inappropriate Antidiuretic Hormone (SIADH), Adrenal Disease or Graves' Disease HEMATOLOGIC: Positive Blood Disorders; Negative Sickle Cell Disease PSYCHO/SOCIAL: Positive Bipolar Disorder; Negative Psychiatric Problems OTHER HISTORY: Positive Hospitalization, Shingles, Falls and Anesthesia Reactions; Negative Autoimmune Disease, Blood Transfusions or Blood Transfusion Reaction Family History FAMILY HISTORY: Negative Family Psychiatric Problems, Family Respiratory Disorders, Family Cardiac Disorders, Family Gastrointestinal Problems, Family Cancer, Family Surgery or Family Anesthesia Reaction Surgical History SURGICAL: Negative Cardiac Surgery, Open Heart Surgery, Coronary Artery Bypass Graft, Valve Replacement, Vascular Surgery, Coronary Stent or Cardiac Catheterization Social History SMOKING STATUS: Never smoker SUBSTANCE USE: does not use ED Exam Narrative Physical exam: [General: Obese not in any acute distress Head normocephalic HEENT: Within acceptable limits Neck is supple nontender Chest equal chest rise nontender to palpation Respiratory: Clear to auscultation no wheezes crackles or rubs CV: Rate rhythm is regular no murmurs rubs or clicks Abdomen: Soft, broken [place] protruding from the stoma for the G-tube. No leaking, stoma has no surrounding erythema edema or exudate. No active bleeding. The remainder of the abdomen is soft nontender to palpation Back: No CVA tenderness no spinous process tenderness from cervical spine thoracic and lumbar spine Skin: Intact no petechiae rash induration ulceration or crepitus Extremities: Moving all extremity against resistance cap refill less than 2 seconds neurosensory intact Neuro: Awake alert oriented x2, person and place, Glascow coma 15 no focal deficits] Course Quality Measures none Orders Category Date Time Status XR abdomen 1V Stat Exams 09/17/24 18:08 Completed Vital Signs Vital signs: Vital Signs Temperature 99.1 F 02/17/25 17:15 Pulse Rate 90 09/17/24 17:15 Respiratory Rate 16 09/17/24 17:15 Blood Pressure 157/86 H 09/17/24 17:15 Pulse Oximetry (%) 94 L 09/17/24 17:15 Oxygen Delivery Method Room Air 09/17/24 17:15 Procedures -ED Procedure Comment 16 Kirk[place] catheter placed in the stoma after the old wound is removed without complication patient tolerated the procedure well. Dressing was applied. [facility] Patient data External records reviewed:: [facility] previous records and EMS form Clinical information provided by:: patient and EMS Social determinants that could affect healthcare access:: none Patient has the following chronic illnesses:: On Plavix diabetes hypertension How is presenting disease/condition affected by chronic disease/condition?: uneffected by Evaluation data The following diagnostics were reviewed and interpreted by me:: radiology exam(s) Lab and/or radiology exams considered but not ordered:: Single view abdomen x-ray with Gastrografin confirms proper tube placement. Interpretation Summary: Replacement of G-tube Medications Medications considered but not ordered:: None Medication administrations:: None Consultations Consultation(s) initiated? (list below): No Diagnosis Differential Diagnosis ED Complaint MDM: G-tube failure G-tube replacement G-tube obstruction Most likely diagnosis given after review of the tests above:: G-tube failure and replacement Admission Indicated Admission indicated?: not indicated Explain why admission is indicated or not indicated:: Stable for discharge Admission Request Was there a request for admission?: No Disposition Plan Disposition Plan: Discharge Discharge Attestation Discharge Attestation: The patient and all family members were given an opportunity to ask questions and understood the discharge instructions. Discharge instructions specifically effects, indications for sooner follow up or return to the emergency department, and the expected course of current diagnosis. Patient condition: Stable Medical Decision Making Differential Diagnosis Differential Diagnosis: G-tube failure G-tube replacement G-tube obstruction Discharge Plan Plan Patient Disposition: HOME (Self Care) Patient condition on transfer: Stable Prescriptions/Referrals Prescriptions/Med Rec: No Action metformin 500 mg Tablet 500 mg PO BID clopidogrel [Plavix] 75 mg Tablet 75 mg PO QDAY lisinopril 20 mg Tablet 20 mg PO QDAY hydrochlorothiazide 12.5 mg capsule 12.5 mg PO QDAY metoclopramide HCl 5 mg/5 mL solution 5 mg PO TID Qty: 473 0RF metoprolol tartrate 25 mg tablet 12.5 mg PO BID Qty: 30 0RF fluconazole 200 mg tablet 200 mg PO QDAY Qty: 14 0RF Referrals: Laina Russell MD [Primary Care Provider] - In 1 week Problem List Clinical Impression: Gastrostomy tube dysfunction Patient/Caregiver Discharge Instructions Education Materials: ED Tube Replacement Feeding W Kirk[place] Print Language: Ugandan Stand Alone Forms: Katie Award Info., Patient Portal Info Letter PA/PHONE OPERATOR Supervising Physician PA/PHONE OPERATOR Supervising Physician: Mak Chew ENP
[2024-09-17 18:44] VITALS: BP 172/102; PULSE 94; RESP 21; TEMP 36.7; O2SAT 95
== END 2024-09-17 23:01 | disposition home or self-care (01) ==
PROVIDERS: Emergency Provider Emergency Medicine; PCP Hospitalist
DX: K94.23 Gastrostomy malfunction (principal)
CPT/HCPCS: 43762; 74018; 99283; Q9963

== ENCOUNTER 2024-10-04 15:34 | Emergency (ER) | payer MEDICARE, MEDICAID, SELFPAY ==
[2024-10-04 15:38] VITALS: BP 166/87; PULSE 77; RESP 19; TEMP 36.6; O2SAT 94
--- NOTE | 2024-10-04 15:42 | PD.EDADULT ---
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 Apparently G-tube is not working, the cath the tube and posted inside. Temporary tube was placed. Related Data Home Medications ?Medication ?Instructions ?Recorded ?Confirmed clopidogrel 75 mg tablet (Plavix) 75 mg PO QDAY 07/01/23 05/02/24 metformin 500 mg tablet 500 mg PO BID 07/01/23 05/02/24 lisinopril 20 mg tablet 20 mg PO QDAY 04/28/24 05/02/24 hydrochlorothiazide 12.5 mg capsule 12.5 mg PO QDAY 05/02/24 05/02/24 Previous Rx's ?Medication ?Instructions ?Recorded fluconazole 200 mg tablet 200 mg PO QDAY #14 tabs 05/07/24 metoclopramide HCl 5 mg/5 mL oral 5 mg (5 mL) PO TID #473 mL 05/07/24 solution metoprolol tartrate 25 mg tablet 12.5 mg (1/2 x 25 mg) PO BID #30 05/07/24 tabs Allergies Allergy/AdvReac Type Severity Reaction Status Date / Time latex Allergy Severe POWDER IN Verified 07/15/24 15:37 GLOVES Review of Systems Review of Systems Narrative Review of Systems: Review of system reviewed and within normal limits except mentioned in HPI ED Exam Narrative Physical exam: VITAL SIGNS: Reviewed. GENERAL APPEARANCE: Alert and interactive, follows commands, no acute distress, HEAD AND FACE: Non-traumatic. ENT: PERRL, pink conjunctivitis, eyelid no trauma, Mucous membrane moist. NECK: Supple, nontender, no nuchal rigidity. CHEST: No tenderness, no crepitus, no paradoxical movement, no retractions. LUNGS: Clear, well ventilated, symmetric, no rales, no wheezing, no ronchi, no stridor, good breath sounds bilaterally. HEART: Regular rate, regular rhythm, no murmur, no gallops. ABDOMEN: Soft, positive bowel sounds, nondistended, no guarding, nontender, no rebound, no masses, temporary G-tube noted on the abdomen, no bleeding noted RECTAL: Deferred. GENITAL: Deferred. NEUROLOGICAL: Gross motor function intact sensory function intact, Appropriate for age. MUSCULOSKELETAL: low back nontender, full range of motion. EXTREMITIES: Nontender, full range of motion. SKIN: Color pink, dry, no rash, no lacerations, no abrasions, no contusions. LYMPHATICS: Deferred. Course Quality Measures none Orders Category Date Time Status KUB [XR abdomen 1V] Stat Exams 10/04/24 16:30 Taken XR abdomen 1V Stat Exams 10/04/24 17:42 Taken Vital Signs Vital signs: Vital Signs Temperature 97.9 F 10/04/24 15:38 Pulse Rate 77 10/04/24 15:38 Respiratory Rate 19 10/04/24 15:38 Blood Pressure 166/87 H 10/04/24 15:38 Pulse Oximetry (%) 94 L 10/04/24 15:38 Oxygen Delivery Method Room Air 10/04/24 15:38 MDM Patient data External records reviewed:: None Clinical information provided by:: patient and EMS Social determinants that could affect healthcare access:: none Patient has the following chronic illnesses:: Hypertension diabetes mellitus How is presenting disease/condition affected by chronic disease/condition?: uneffected by Evaluation data The following diagnostics were reviewed and interpreted by me:: radiology exam(s) Lab and/or radiology exams considered but not ordered:: None Interpretation Summary: X-ray of the abdomen, showed G-tube in right position, no extravasation of the dye Medications Medications considered but not ordered:: None Medication administrations:: None Consultations Consultation(s) initiated? (list below): No Diagnosis Differential Diagnosis ED Complaint MDM: Malfunctioning G-tube Most likely diagnosis given after review of the tests above:: Malfunctioning G-tube, reinsertion of G-tube Admission Indicated Admission indicated?: not indicated Explain why admission is indicated or not indicated:: None Admission Request Was there a request for admission?: No Disposition Plan Disposition Plan: Discharge Discharge Attestation Discharge Attestation: Patient condition: Stable Medical Decision Making MDM Narrative MDM Narrative: 84-year-old female patient with history of hypertension diabetes mellitus, chronic G-tube, was brought in for evaluation regarding malfunctioning G-tube. Apparently G-tube is not working, the cath the tube and posted inside. Temporary tube was placed. G-tube was replaced by me without any difficulty. X-ray of the abdomen and using Gastrografin was done, no extravasation of the dye. Patient G-tube was noted on the right placed in the stomach. Okay to use the G-tube Differential Diagnosis Differential Diagnosis: Malfunctioning G-tube Discharge Plan Plan Patient Disposition: HOME (Self Care) Disposition Comment: Stable Prescriptions/Referrals Prescriptions/Med Rec: No Action metformin 500 mg Tablet 500 mg PO BID clopidogrel [Plavix] 75 mg Tablet 75 mg PO QDAY lisinopril 20 mg Tablet 20 mg PO QDAY hydrochlorothiazide 12.5 mg capsule 12.5 mg PO QDAY metoclopramide HCl 5 mg/5 mL solution 5 mg PO TID Qty: 473 0RF metoprolol tartrate 25 mg tablet 12.5 mg PO BID Qty: 30 0RF fluconazole 200 mg tablet 200 mg PO QDAY Qty: 14 0RF Referrals: No Primary/Family,Physician [Primary Care Provider] - In 1 week Problem List Clinical Impression: Malfunction of gastrostomy tube Patient/Caregiver Discharge Instructions Discharge Activity: activity as tolerated Education Materials: ED Feeding Tube Replacement Additional Instructions: Thank you for the opportunity for serving you today. You are stable for discharged . You are advised to: Follow-up with your PCP in 1 to 2 days Return to ED for worsening of symptoms Okay to use the G-tube Print Language: Nicaraguan Stand Alone Forms: Katie Award Info., Patient Portal Info Letter PA/FRANCA Supervising Physician LANIE/FRANCA Supervising Physician: MD Nikia
[2024-10-04 16:04] VITALS: PULSE 83; RESP 18; O2SAT 100
--- NOTE | 2024-10-04 16:30 | XR_ITS ---
Examination: Abdomen AP single view Technique: AP portable supine abdomen, single view Exam date and time: October 04, 2024 1646 hrs. Indications: Unknown position gastrostomy tube Findings: Gastrostomy tube overlies the stomach Air distended small bowel loops Abundant stool in the rectosigmoid Impression: Consider injecting contrast into the gastrostomy tube to confirm position
[2024-10-04 17:01] VITALS: BMI 25.0
--- NOTE | 2024-10-04 17:42 | XR_ITS ---
Examination: Abdomen AP single view Technique: AP portable supine abdomen, single view Exam date and time: October 04, 2024 1800 hrs. Indications: Unknown position gastrostomy tube Findings: Contrast opacifies the gastrostomy tube in stomach, the tube in satisfactory position Impression: Gastrostomy tube satisfactory position
[2024-10-04 18:20] VITALS: BP 172/102; PULSE 96; RESP 18; TEMP 36.9; O2SAT 95
--- NOTE | 2024-10-04 18:36 | PC.CC ---
GARFIELDWMelissa was consulted regarding transportation for patient back to [facility]. ASW arranged transportation [facility] Number [phone].
--- NOTE | 2024-10-04 18:54 | PC.NURSE ---
REPORT CALLED TO ARMANDO AT [facility]. PENDING TRANSPORTATION.
[2024-10-04 19:47] VITALS: BP 174/102; PULSE 91; RESP 18; TEMP 37.1; O2SAT 97
== END 2024-10-04 19:47 | disposition home or self-care (01) ==
PROVIDERS: Emergency Provider Emergency Medicine
DX: K94.23 Gastrostomy malfunction (principal)
CPT/HCPCS: 74018; 99283

== ENCOUNTER 2025-06-08 10:01 | Emergency (ER) | payer MEDICARE, MEDICAID, SELFPAY ==
--- NOTE | 2025-06-08 10:13 | PD.EDABDPN ---
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 Denied discharge from site or required from site of G-tube. Mild diffuse abdominal tenderness throughout all quadrants. Patient can cannot recall last bowel movement. Patient denied emesis or hemoptysis. Denied melena or hematochezia. No diarrhea reported. Recent shingles over a month ago that has resolved since then. KUB ordered. PEG tube placement. Related Data Home Medications ?Medication ?Instructions ?Recorded ?Confirmed clopidogrel 75 mg tablet (Plavix) 75 mg PO QDAY 07/01/23 05/02/24 metformin 500 mg tablet 500 mg PO BID 07/01/23 05/02/24 lisinopril 20 mg tablet 20 mg PO QDAY 04/28/24 05/02/24 hydrochlorothiazide 12.5 mg capsule 12.5 mg PO QDAY 05/02/24 05/02/24 Previous Rx's ?Medication ?Instructions ?Recorded metoclopramide HCl 5 mg/5 mL oral 5 mg (5 mL) PO TID #473 mL 05/07/24 solution metoprolol tartrate 25 mg tablet 12.5 mg (1/2 x 25 mg) PO BID #30 05/07/24 tabs polyethylene glycol 3350 17 4 g PO QDAY PRN constipation 1 06/08/25 gram/dose oral powder (Miralax) month #119 grams Allergies Allergy/AdvReac Type Severity Reaction Status Date / Time latex Allergy Severe POWDER IN Verified 07/15/24 15:37 GLOVES Review of Systems Review of Systems Narrative Review of Systems: General appearance: NO weight change, NO fatigue, NO weakness, NO fever, NO chills, NO night sweats, No cough, G tube removed by accident Skin: NO rash, NO itching, NO sores, NO moles HEENT: NO Trauma, NO nausea, NO vomiting, NO visual changes, NO blurry vision, NO double vision, NO tinnitus, NO vertigo, NO ear discharge, NO rhinorrhea, NO stuffiness, NO sneezing, NO allergy, NO epistaxis. NO Hoarseness, NO sore throat, NO swollen neck. Cardiac: NO Palpitations, NO dyspnea on exertion, NO orthopnea, NO paroxysmal nocturnal dyspnea, NO edema Respiratory: NO Shortness of Breath, NO Wheezing, NO Cough, NO Sputum, NO hemoptysis GI:NO appetite, NO nausea, NO vomiting, NO dysphagia, NO changes in bowel frequency, NO stool color, NO diarrhea, NO constipation, NO hemetemesis, NO hemorrhoids, NO melena, NO hematechezia, NO abdominal pain, NO jaundice Renal: NO frequency, NO hesitancy, NO urgency, NO hematuria, NO nocturia, NO incontinence MSK: NO muscle weakness, NO gout, NO arthritis, NO muscle stiffness Neuro: NO headaches, NO tremors, NO weakness, NO paralysis, NO seizures, NO loss of consciousness, NO numbness. Hem: NO anemia, NO easy bruising/bleeding, NO petechiae, NO purpura Endo: NO heat/cold intolerance, NO excessive sweating, NO polyuria, NO polydipsia, NO polyphagia, NO thyroid problems, NO diabetes Pysch: NO mood, NO anxiety, NO depression ED Exam Narrative Physical exam: General Appearance: Alert & Oriented X2, well-nourished female who is lying in bed in no acute distress HEENT: Skull symmetrical and atraumatic. Conjunctivae pin and moist. Pupils equal, round, reactive to light and accommodation (PERRL). External ear without lesion or discharge. Straight, nares patient, mucosa pink, no discharge. Cardio: Normal Rate and Rhythm with S1 and S2 heart sounds. No murmurs or extra heart sounds auscultated. No bruits on carotid auscultation. No peripheral edema or cyanosis. Lungs: Symmetric with good expansion. Chest and back non-tender. Breath sounds vesicular without crackles, wheezing or rhonchi Abdomen: Mild tenderness through out all quadrants, Non-distended, Normal Reactive Bowel Sounds, Stoma noted to be present without discharge and patent stoma Neuro: Alert, cooperative, oriented to person, place, and time. Speech clear. CN grossly intact. Upper motor strength 5/5 and Lower motor strength 4/5. Sensation intact. Course Quality Measures none Orders Category Date Time Status In and Out Catheter X1 Care 06/08/25 10:49 Completed KUB [XR abdomen 1V] Stat Exams 06/08/25 11:38 Completed XR chest 1V Urgent Exams 06/08/25 11:37 Completed Urinalysis, C/S if Indicated Stat Lab 06/08/25 11:33 Completed Vital Signs Vital signs: Vital Signs Temperature 97.9 F 06/08/25 12:21 Pulse Rate 72 06/08/25 12:21 Respiratory Rate 18 06/08/25 12:21 Blood Pressure 122/72 06/08/25 12:21 Pulse Oximetry (%) 96 06/08/25 12:21 Oxygen Delivery Method Room Air 06/08/25 12:21 Abdominal Pain MDM Patient data External records reviewed:: None Clinical information provided by:: patient and other (specify) ([facility] ) Social determinants that could affect healthcare access:: mental health (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 ) Patient has the following chronic illnesses:: hypertension, history of diabetes mellitus type 2 [id number] history of CVA, mild neurocognitive disorder (per chart review), history of CAD status post 2 stents on Plavix and legally blind How is presenting disease/condition affected by chronic disease/condition?: exacerbated by (PEG tube removal likely secondary to history of neurocognitive disorder (not specified by [facility]) ) Evaluation data The following diagnostics were reviewed and interpreted by me:: lab results Lab and/or radiology exams considered but not ordered:: None Interpretation Summary: Given history of neurocognitive disorder (not specified by [facility]), patient likely removed PEG tube. Chest x ray and UA negative. PEG tube replaced and images added confirm placement. Medications / Prescriptions Medications or Prescriptions considered but not ordered:: None Medication administrations:: none, PEG tube re-insertion Consultations Consultation(s) initiated? (list below): No Diagnosis Differential diagnosis abdominal pain: constipation, diverticulitis, gastroenteritis and other (PEG tube removal ) Most likely diagnosis given after review of the tests above:: Given history of neurocognitive disorder (not specified by [facility]), patient likely removed PEG tube. Chest x ray and UA negative. PEG tube replaced and images added confirm placement. - The patient's plan was discussed with attending Dr. Nikia Jerez MD PGY2 Internal Medicine Admission Indicated Admission indicated?: not indicated Explain why admission is indicated or not indicated:: No admission not indicated and patient's vitals were stable, cmp, and cbc within normal limits. Negative leukocytosis. Images showed PEG tube placement in correct site. Admission Request Was there a request for admission?: No Disposition Plan Disposition Plan: Discharge Discharge Attestation Discharge Attestation: The patient and all family members were given an opportunity to ask questions and understood the discharge instructions. Discharge instructions specifically effects, indications for sooner follow up or return to the emergency department, and the expected course of current diagnosis. Patient condition: Stable Discharge Plan Plan Patient Disposition: [facility] (SNF) Patient condition on transfer: Stable Health Concerns: Instructions: -ER visit secondary to PEG tube removal, which was replaced in the emergency room -Please follow up with your primary care provider within one week of discharge - Continue all your medication as prescribed. -Miralax added as a source of fiber, use as needed and constipation prevention. -If your symptoms worsen,please seek immediate medical attention and return to your nearest emergency room -If you do not have a primary care provider, you may follow up at the [facility] at [address] [place] [address] [address], [place] [address], Prescriptions/Referrals Prescriptions/Med Rec: New polyethylene glycol 3350 [Miralax] 17 gram/dose powder 4 g PO QDAY PRN (Reason: constipation) 30 Days Qty: 119 0RF Continued metformin 500 mg Tablet 500 mg PO BID clopidogrel [Plavix] 75 mg Tablet 75 mg PO QDAY lisinopril 20 mg Tablet 20 mg PO QDAY hydrochlorothiazide 12.5 mg capsule 12.5 mg PO QDAY metoclopramide HCl 5 mg/5 mL solution 5 mg PO TID Qty: 473 0RF metoprolol tartrate 25 mg tablet 12.5 mg PO BID Qty: 30 0RF Discontinued fluconazole 200 mg tablet 200 mg PO QDAY Qty: 14 0RF Referrals: Laina Russell MD [Primary Care Provider] - In 1 week Problem List Clinical Impression: Encounter for PEG (percutaneous endoscopic gastrostomy) Patient/Caregiver Discharge Instructions Print Language: Korean Stand Alone Forms: Katie Award Info., Patient Portal Info Letter
[2025-06-08 11:01] VITALS: PULSE 74; RESP 16; O2SAT 96; BMI 24.2
[2025-06-08 11:37] LABS: Collection Type, Urine Clean Catch
--- NOTE | 2025-06-08 11:37 | XR_ITS ---
Exam: Chest 1 view, AP Date and time of exam: 04/27/2024 INDICATION: Cough Comparison: 04/27/2024 Findings: Normal heart size. No mediastinal adenopathy. No acute fracture No pulmonary edema or pneumonia. Peribronchial thickening. Impression: Mild peribronchial inflammation. No focal mass or infiltrate
--- NOTE | 2025-06-08 11:38 | XR_ITS ---
Examination: Abdomen AP single view Technique: AP portable supine abdomen, single view Exam date and time: 06/08/2025, 1:43 a.m. Indication: Confirmation of PEG tube placement. COMPARISON: 10/04/2024. FINDINGS: Catheter present with contrast opacifying the stomach demonstrating normal gastric rugae. Diffuse fecal material seen in the sigmoid colon and rectum. Otherwise nondilated bowel gas pattern. IMPRESSION: Visualized catheter appears positioned within the gastric lumen. Diffuse fecal material in the rectum and sigmoid colon
[2025-06-08 11:55] LABS: Amorphous Crystals,Urine Present (Absent); Bilirubin,Urine Negative (Negative); Blood,Urine Negative (Negative); Clarity,Urine Turbid (Clear/Hazy); Color,Urine Yellow (Lt Yel-Yel); Culture Indicated,Urine Not Indicated; Glucose, Urine Negative (Negative); Ketones,Urine Negative (Negative); Leukocyte Esterase,Urine Negative (Negative); Nitrite,Urine Negative (Negative); PH,Urine 7.5 (5.0-7.0); Protein,Urine Negative (Neg - Trace); RBC,Urine < 1 /hpf (0-3); Specific Gravity,Urine 1.019 (1.001-1.035); Squamous Epithelial Cell,Urine 2 /hpf (0-5); Urobilinogen,Urine Negative mg/dL (0.0-1.0); WBC,Urine 1 /hpf (0-5)
[2025-06-08 12:21] VITALS: BP 122/72; PULSE 72; RESP 18; TEMP 36.6; O2SAT 96
--- NOTE | 2025-06-08 13:58 | PC.CC ---
Wrapper Sheeter, Celia made aware by bedside RNJuanjose that patient needed transportation to return to [facility]. CC contacted [facility] to schedule transportation[place] [facility] [id number]. CC scheduled EMS transportation with [facility] for 1500.
--- NOTE | 2025-06-08 14:18 | PC.NURSE ---
Gave report to Carlotta at [facility]. Informed of new G-tube placement and gave discharge instructions
== END 2025-06-08 19:54 | disposition skilled nursing facility (03) ==
PROVIDERS: Emergency Provider Emergency Medicine; PCP Hospitalist
DX: Z43.1 Encounter for attention to gastrostomy (principal); E11.9 Type 2 diabetes mellitus without complications; H54.8 Legal blindness, as defined in USA; I10 Essential (primary) hypertension; I25.10 Atherosclerotic heart disease of native coronary artery without angina pectoris; Z79.02 Long term (current) use of antithrombotics/antiplatelets; Z79.84 Long term (current) use of oral hypoglycemic drugs; Z79.899 Other long term (current) drug therapy; Z86.73 Personal history of transient ischemic attack (TIA), and cerebral infarction without residual deficits; Z95.5 Presence of coronary angioplasty implant and graft
CPT/HCPCS: 43762; 51701; 71045; 74018; 81001; 99283

== ENCOUNTER 2025-07-08 18:58 | Emergency (ER) | payer MEDICARE, MEDICAID, SELFPAY ==
--- NOTE | 2025-07-08 19:00 | PD.EDADULT ---
ED General RME/HPI General Chief complaint: General Adult/Misc Complain Stated complaint: G TUBE REPLACEMENT Time Seen by Provider: 07/08/25 19:09 Arrival date/time: 07/08/25 18:58 RME / HPI RME / HPI narrative: Dr. Duggan?s Main ED Evaluation: 85yo female with multiple medical problems including bipolar illness presents after arriving from [facility] due to being agitated and fracturing her g-tube, she is now here for replacement. No other specific complaints by patient or medics. No reported vomiting or abdominal pain. Related Data Home Medications ?Medication ?Instructions ?Recorded ?Confirmed clopidogrel 75 mg tablet (Plavix) 75 mg PO QDAY 07/01/23 05/02/24 metformin 500 mg tablet 500 mg PO BID 07/01/23 05/02/24 lisinopril 20 mg tablet 20 mg PO QDAY 04/28/24 05/02/24 hydrochlorothiazide 12.5 mg capsule 12.5 mg PO QDAY 05/02/24 05/02/24 Previous Rx's ?Medication ?Instructions ?Recorded metoclopramide HCl 5 mg/5 mL oral 5 mg (5 mL) PO TID #473 mL 05/07/24 solution metoprolol tartrate 25 mg tablet 12.5 mg (1/2 x 25 mg) PO BID #30 05/07/24 tabs lamotrigine 25 mg tablet (Lamictal) 25 mg PO QDAY 14 days #14 tabs 07/08/25 Allergies Allergy/AdvReac Type Severity Reaction Status Date / Time latex Allergy Severe POWDER IN Verified 07/08/25 19:14 GLOVES Review of Systems Review of Systems Systems Reviewed: All systems reviewed, normal except as documented ED Exam Narrative Physical exam: GENERAL APPEARANCE: alert and oriented x 2/3 with assist, well-developed, well-nourished, able to follow simple commands, complains of pruritis, no acute distress VITALS: All vitals were reviewed and the pulse ox is 96% on room air, which is normal according to my interpretation. HEENT: Normocephalic, atraumatic; pupils equal, round, reactive to light; EOMI; mucous membranes pink, moist; oropharynx clear NECK: Supple LUNGS: CTABL; no wheezes, no rales, no rhonchi HEART: Regular rate, regular rhythm; normal S1, S2; no murmurs ABDOMEN: non distended; soft, no tenderness, fracture of the g-tube that is in place NEUROLOGIC: awake; alert and oriented x2/3 with assist; cranial nerves II-XII grossly intact; no focal sensory or motor deficits PSYCHIATRIC: appears mildly agitated intermittently SKIN: warm, dry, normal color; no rashes Course Quality Measures none Orders Category Date Time Status Haloperidol Lactate [Haldol Inj] Med 07/08/25 19:29 Discontinued 10 mg IM X1 ONE Midazolam Inj [Versed Inj] Med 07/08/25 20:07 Discontinued 2.5 mg IM X1 ONE QUEtiapine FUMARATE [SEROquel] Med 07/08/25 19:19 Discontinued 200 mg PO X1 ONE Vital Signs Vital signs: Vital Signs Pulse Rate 88 07/08/25 19:01 Respiratory Rate 17 07/08/25 19:01 Blood Pressure 167/85 H 07/08/25 19:01 Pulse Oximetry (%) 96 07/08/25 19:01 Oxygen Delivery Method Room Air 07/08/25 19:01 PROCEDURES: Feeding Tube Replacement Type of Tube: gastrostomy Insertion Site Prior to Procedure: clean Tube Used for Reinsertion: Bard Hong Konger Tube Size (F): 20 Balloon size (mL): 10 Verification of Placement: auscultation Tube Secured by: suturing Patient Tolerated Procedure: well and no complications Discharge Plan Plan Patient Disposition: HOME (Self Care) Discharge Disposition comment: Stable Prescriptions/Referrals Prescriptions/Med Rec: New lamotrigine [Lamictal] 25 mg tablet 25 mg PO QDAY 14 Days Qty: 14 0RF No Action metformin 500 mg Tablet 500 mg PO BID clopidogrel [Plavix] 75 mg Tablet 75 mg PO QDAY lisinopril 20 mg Tablet 20 mg PO QDAY hydrochlorothiazide 12.5 mg capsule 12.5 mg PO QDAY metoclopramide HCl 5 mg/5 mL solution 5 mg PO TID Qty: 473 0RF metoprolol tartrate 25 mg tablet 12.5 mg PO BID Qty: 30 0RF Problem List Clinical Impression: Encounter for feeding tube placement Impression comment: Feeding tube replacement Patient/Caregiver Discharge Instructions Discharge Activity: activity as tolerated Education Materials: ED Feeding Tube Replacement Additional Instructions: Begin Lamictal therapy. Follow-up with GI specialist as needed Print Language: Lao Stand Alone Forms: Katie Award Info., Patient Portal Info Letter MDM Narrative MDM hospital course (for use when minimal MDM required): Scribe Attestation: 07/08/25 - Tea Izquierdo am scribing for and in the presence of Dr. Duggan. 85yo female with multiple medical problems including bipolar illness presents after arriving from SNF due to being agitated and fracturing her g-tube, she is now here for replacement. No other specific complaints by patient or medics. Please see PE findings. Labs deferred. Patient underwent replacement of feeding tube utilizing a aaron catheter, which flushed easily. Review of EMR shows the patient has a history of bipolar illness, but does not have any antipsychotics in place. Will consider Lamictal in order to consider reduce agitation, thereby likelihood of recurrent dislodgment. Dx: replacement of G-tube Clinical Information Provided by: EMS Medical Records reviewed [facility] (Per chart review, patient was admitted here on 06/08/25 for encounter for G-tube replacement.) Meds/Rx considered, not ordered None Labs/Rad/Tests considered, not ordered None Chronic Illness/Social Conditions which may negatively complicate care or outcome(s)-explain: custodial/debilitated Explain: Hx HTN, DMII, CVA,CAD status post 2 stents on Plavix, legally blind EKG EKG not done Labs Labs: none Imaging Imaging interpretation: none Medication Administration(s) none Medication Administration History Discontinued Medications Haloperidol Lactate (Haloperidol Lact Inj 5 Mg/Ml Vial) 10 mg IM X1 ONE Stop: 07/08/25 19:30 Last Admin: 07/08/25 19:45 Dose: 10 mg Documented By: SEBASTIAN Midazolam HCl (Midazolam Inj 1 Mg/Ml Vial 2 Ml) 2.5 mg IM X1 ONE Stop: 07/08/25 20:08 Last Admin: 07/08/25 20:16 Dose: 2.5 mg Documented By: SEBASTIAN Quetiapine Fumarate (Quetiapine Fumarate 100 Mg Tablet) 200 mg PO X1 ONE Stop: 07/08/25 19:20 Last Admin: 07/08/25 19:49 Dose: Not Given Documented By: SEBASTIAN Non-Admin Reason: Cancelled by Provider Diagnosis Differential Diagnosis ED Complaint MDM: G-tube malfunction, G-tube dislodgment, G-tube blockage
[2025-07-08 19:01] VITALS: BP 167/85; PULSE 88; RESP 17; O2SAT 96
[2025-07-08 19:15] VITALS: BMI 28.1
[2025-07-08 19:20] VITALS: BP 160/90; PULSE 88; RESP 20; O2SAT 96
[2025-07-08] MEDS: HALOPERIDOL LACT INJ 5 MG/ML VIAL 10 MG IM (19:45)
[2025-07-08] MEDS: MIDAZOLAM INJ 1 MG/ML VIAL 2 ML 2.5 MG IM (20:16)
[2025-07-08 20:18] VITALS: BP 130/80; PULSE 84; RESP 18; TEMP 37.2; O2SAT 97
== END 2025-07-08 21:09 | disposition home or self-care (01) ==
PROVIDERS: Emergency Provider Emergency Medicine; PCP Hospitalist
DX: Z46.59 Encounter for fitting and adjustment of other gastrointestinal appliance and device (principal)
CPT/HCPCS: 43762; 96372; 99282; J1630; J2250